=== PATIENT | male | born 2000 | race Hispanic/Latino ===

== ENCOUNTER 2023-05-10 09:27 | Emergency (ER) | payer OTHER, SELFPAY ==
[2023-05-10 09:32] VITALS: BP 145/87; PULSE 67; RESP 20; TEMP 36.8; O2SAT 100
--- NOTE | 2023-05-10 11:28 | ED.WOUNDLAC ---
HPI - Wound/Laceration General Chief Complaint: Wound/Laceration Stated Complaint: ear laceration Time Seen by Provider: 05/10/23 10:59 Source: patient Mode of arrival: ambulatory Limitations: language barrier ( using stratus cleat maker) History of Present Illness HPI narrative: This is a 23-year-old male that presents to the emergency department for a laceration to his right ear sustained this morning. Reports he was taking a bag of trash out and there was a nail in it. He threw the bag over his shoulder and the nail scratched his ear. Reports bleeding and pain in the area. He is not up-to-date on tetanus. Denies fevers. Related Data Allergies Allergy/AdvReac Type Severity Reaction Status Date / Time No Known Allergies Allergy Verified 05/10/23 09:34 Review of Systems Review of Systems: CONSTITUTIONAL: Denies fever SKIN: Reports laceration All systems reviewed & are unremarkable except as noted in HPI and below PMFSH Past Medical History Medical History (Updated 05/10/23 @ 11:32 by Trinidad Rasmussen PA-C) No active medical problems Social History Social History (Updated 05/10/23 @ 11:32 by Trinidad Rasmussen PA-C) Smoking status: Current every day smoker Exam Narrative: GENERAL: Well-appearing, well-nourished, and in no acute distress. HEAD: Normocephalic EYES: EOMI. ENT: Right external ear with 1 cm linear superficial laceration EXTREMITIES: Normal range of motion. No edema. SKIN: Warm, dry, no rash. NEURO: No focal deficits. Alert and oriented x3. PSYCH: Normal mood and affect Course Course Emergency Course: patient educated on further wound care Vital Signs Vital signs: Vital Signs Temperature 98.2 F 05/10/23 09:32 Pulse Rate 67 05/10/23 09:32 Respiratory Rate 20 05/10/23 09:32 Blood Pressure 145/87 H 05/10/23 09:32 Pulse Oximetry 100 05/10/23 09:32 Oxygen Delivery Room Air 05/10/23 09:32 Temperature 98.2 F 05/10/23 09:32 Pulse Rate 67 05/10/23 09:32 Respiratory Rate 20 05/10/23 09:32 Blood Pressure 145/87 H 05/10/23 09:32 Pulse Oximetry 100 05/10/23 09:32 Oxygen Delivery Room Air 05/10/23 09:32 Procedures Laceration Laceration 1: Date: 05/10/23 Time: 11:34 Site: other ( ear) Side (If applicable): right Size (cm): 1 Description: linear Depth: simple, single layer Pre-repair: irrigated ====== Skin Level ====== Skin layer closed with: dermabond ====== Subcutaneous Layer ====== ====== Muscle Layer ====== ====== Tendon Layer ====== MDM - Wound/Laceration MDM Narrative Medical decision making narrative: Patient presents to the emergency department for a laceration to his right ear sustained this morning. His wound was irrigated and closed with glue. He was updated on tetanus. He was educated on further wound care. He is to follow up with primary provider. He was given warnings to return to the ER Differential Diagnosis Differential diagnosis: Likely laceration and abrasion Critical Care Time Critical Care Time Critical Care Time: No Discharge Plan Discharge Clinical Impression: Laceration Patient Disposition: Home, Self-Care Condition: Stable Instructions: Laceration (ED), Skin Adhesive Care (ED) Additional Instructions: Return to the emergency department if you experience fever, redness or swelling of your wound, abnormal drainage from your wound, or any other symptoms that are concerning to you. You may let water run over your wound in the shower. No harsh scrubbing to the area. The glue will fall off on its ready. Take oral antibiotic as prescribed Follow-up with primary care doctor for wound check Patient Language: [place] Prescriptions: New cephalexin 500 mg capsule 500 mg PO Q6H 5 Days Qty: 20 0RF Follow-up/Referrals: PHYSICIAN,PATTERN LEASE INSPECTOR [Primary Care Provider] - Levar Sow MD [Physician] -
[2023-05-10] MEDS: TETANUS,DIPHTHERIA,AC PERTUSSIS ADULT (0.5 ML) BOOSTRIX IM (11:37)
== END 2023-05-10 11:48 | disposition home or self-care (01) ==
PROVIDERS: Emergency Provider Physician Assistant
DX: S01.311A Laceration without foreign body of right ear, initial encounter (principal); W45.0XXA Nail entering through skin, initial encounter; F17.210 Nicotine dependence, cigarettes, uncomplicated; Z23 Encounter for immunization
CPT/HCPCS: 90715; 99283